=== PATIENT | female | born 2000 | race Caucasian/White ===

== ENCOUNTER 2023-06-15 14:08 | Emergency (ER) | payer OTHER, SELFPAY ==
[2023-06-15 14:10] VITALS: BP 136/96; PULSE 107; RESP 16; TEMP 36.3; O2SAT 99; BMI 35.2
--- NOTE | 2023-06-15 14:34 | EX.ED.DYSGE1 ---
HPI History of Present Illness Chief Complaint: Nausea/Vomiting Informant: patient Onset/Context/Timing Onset: Days (6 days) Context: Gradual Onset Timing: Waxes and wanes Narrative Narrative: Patient presents secondary to nausea and vomiting with concerns for dehydration. She is G1, P0, Ab0 currently 13 weeks . She reports nausea and vomiting over the past 6 days. No diarrhea. She called her OB today who recommended she come in for hydration. She has not noted fever. She has had no bleeding or spotting. PFSH PFSH Medical History no medical history no medical history Home Medications NK 06/15/23 [History Last Taken Unknown] ondansetron 4 mg disintegrating tablet 4 mg PO Q8H PRN PRN Nausea #10 tabs 06/15/23 [Rx Last Taken Unknown] Allergy/AdvReac Type Severity Reaction Status Date / Time No Known Allergies Allergy Verified 06/15/23 14:09 Social History Smoking Status: Never smoker ROS ROS ED Constitutional Constitutional ED: Denies chills or fever(s) Eyes Eyes: Denies change in vision or discharge from eye(s) ENT ENT ED: Denies discharge from eye(s), rhinorrhea or sore throat Cardiovascular Cardiovascular: Denies chest pain or palpitations Respiratory/Chest Respiratory/Chest: Denies cough or dyspnea Gastrointestinal Gastrointestinal: Reports nausea and vomiting; Denies abdominal pain or diarrhea Genitourinary Genitourinary ED: Reports other Details: Decreased urination ; Denies dysuria Musculoskeletal Musculoskeletal: Denies back pain or extremity pain Integumentary Denies Abrasions or rash Neurologic Neurologic: Denies headache(s) or weakness Psychiatric Psychiatric: Denies anxiety or depression Allergic/Immunologic Allergic/Immunologic ED: Denies lip swelling or urticaria EXAM Physical Exam Const Vital Signs: 06/15/23 14:10 Temperature 97.3 F L Temperature Source Temporal Pulse Rate 107 H Respiratory Rate 16 Blood Pressure 136/96 H Blood Pressure Mean 109 Pulse Ox 99 Oxygen Delivery Method Room Air Positive well nourished and well developed General Appearance ED: well developed HEENT Reports dry mucous membranes Mouth ED: Yes dry mucous membranes Mouth: dry mucous membranes Eyes EOMs intact bilaterally Chest Wall inspection of chest normal and palpation of chest normal Resp normal respiratory effort and clear to auscultation bilaterally Cardio regular rhythm Rate: tachycardic GI GI Narrative: Abdomen soft with mild epigastric tenderness. No guarding or rebound. Extremity normal to inspection Neuro oriented x3 and no sensory deficits noted Motor Exam: strength 5/5 throughout Psych mental status grossly normal Skin no rashes or lesions noted MDM MDM MDM Narrative Medical decision making narrative: IV line initiated. Patient given IV fluids and Zofran. Labwork obtained to evaluate for leukocytosis, anemia, and electrolyte derangement. Urinalysis obtained to evaluate for infection/hematuria. History & Record Review Discussion w/independent historian: Patient Lab Data Attestation: I reviewed the patient's lab results. Labs: Laboratory Results - last 24 hr 06/15/23 14:50 WBC 9.6 RBC 4.53 Hgb 14.3 Hct 41.6 MCV 91.8 MCH 31.6 MCHC 34.4 RDW Std Deviation 39.7 RDW Coeff of Alejandro 11.8 Plt Count 290 MPV 9.7 Immature Gran % (Auto) 0.400 Neut % (Auto) 74.9 H Lymph % (Auto) 18.1 L Amelia % (Auto) 6.2 Eos % (Auto) 0.2 Baso % (Auto) 0.2 Absolute Neuts (auto) 7.2 Absolute Lymphs (auto) 1.73 Nucleated RBC % 0 Sodium 137 Potassium 3.4 L Chloride 105 Carbon Dioxide 22.0 Anion Gap 10 BUN 10 Creatinine 0.74 Estim Creat Clear Calc 133.20 Est GFR (MDRD) Af Amer 122 Est GFR (MDRD) Non-Af 101 BUN/Creatinine Ratio 13.4 Glucose 98 Calcium 10.0 Urine Color Yellow Urine Clarity Sl. Cloudy Urine pH 6.0 Ur Specific Aurora 1.025 Urine Protein 30 H Urine Glucose (UA) Normal Urine Ketones 150 A* Urine Occult Blood Negative Urine Nitrite Negative Urine Bilirubin 1 H Urine Urobilinogen 4 H Ur Leukocyte Esterase 25 H Urine RBC 0 SEEN Urine WBC 0-5 SEEN Ur Squamous Epith Cells 0-5 SEEN Urine Bacteria 1+ Urine Mucus 1+ Treatment and Re-Evaluation :: CBC was normal white count 9.6 with a hemoglobin of 14.3. 74% neutrophils noted. Chemistry studies reveal slightly low potassium at 3.4. Renal function is normal. Urinalysis reveals 150 ketones. 1+ bacteria is noted with 0-5 epithelial cells and 0-5 white cells. On repeat evaluation she does feel somewhat improved. She is tolerating ice chips without difficulty. She has had a liter of IV fluid and I will write her prescription for Zofran for home. Return instructions given. Discharge Plan Triage Chief Complaint: Nausea/Vomiting ED Provider: Taty Miramontes Dx/Rx/DC Orders Clinical Impression: Vomiting, Dehydration Instructions: ED Dehydration (Adult), ED Vomiting (Adult) Prescriptions: New ondansetron 4 mg tablet,disintegrating 4 mg PO Q8H PRN PRN (Reason: Nausea) Qty: 10 0RF No Action NK Primary Care Provider: Care Physician,No Primary Referrals: Hortensia Souza MD [Med Staff - Active Staff] - 3-5 Days if not improving Care Physician,No Primary [Primary Care Provider] - Disposition Disposition: Home, Self Care
[2023-06-15 14:55] LABS: Red Blood Cells-Urine 0 SEEN /hpf (0-5)
[2023-06-15] MEDS: Ondansetron 4 MG/2 ML Vial IV (14:57)
[2023-06-15] MEDS: 0.9% Normal Saline (1000mL) 1,000 ML 1000 ML IV (14:57)
[2023-06-15 15:00] LABS: Absolute Lymphocyte Count 1.73 X10^3/uL (0.83-4.51); Absolute Neutrophil Count 7.2 X10^3/uL (2.0-7.7); Basophil# 0.02 X10^3/uL; Basophil% 0.2 % (0-1); Color, Urine Yellow (Yellow); Eosinophil# 0.02 X10^3/uL; Eosinophils% 0.2 % (0-5); Glucose, Dipstick Normal (Normal); Hematocrit 41.6 % (37-47); Hemoglobin 14.3 g/dL (12.0-15.0); Leukocyte Esterase-Dipstick 25 /ul (Negative); Lymphocyte # 1.73 X10^3/ul (0.83-4.51); Lymphocyte % 18.1 % (19-41); Mean Corp Hgb Conc 34.4 g/dL (32-36); Mean Corpuscular Hgb 31.6 pg (27.0-32.0); Mean Corpuscular Volume 91.8 fL (81-99); Mean Platelet Vol. 9.7 fl (6.2-12.0); Monocyte# 0.59 X10^3/uL; Monocyte% 6.2 % (0-10); NRBC Flagged by Analyzer 0 % (0-5); Neutrophil # 7.16 X10^3/uL (2.7-7.7); Neutrophil % 74.9 % (47-70); Nitrite-Dipstick Negative (Negative); Occult Blood-Urine Negative /ul (Negative); Platelet Count 290 K/mm3 (150-450); Protein-Dipstick 30 mg/dl (Negative); RBC Distribution Width CV 11.8 % (11.6-14.6); RBC Distribution Width SD 39.7 fl (35.1-43.9); Red Blood Count 4.53 M/mm3 (4.2-5.4); Specific Gravity, Urine 1.025 (1.002-1.030); Urine Clarity Sl. Cloudy (Clear); Urine Urobilinogen 4 mg/dl (Normal); White Blood Count 9.6 K/mm3 (4.4-11.0)
[2023-06-15 15:02] LABS: Urine Bilirubin Dipstick 1 mg/dL (Negative)
[2023-06-15 15:03] LABS: Ketone-Dipstick 150 mg/dl (Negative)
[2023-06-15 15:07] LABS: Bacteria 1+ /hpf (None Seen); Mucous, Urine 1+ /hpf (<or=2+); Squamous Epithelial Cells - UA 0-5 SEEN /hpf (5-10); White Blood Cells 0-5 SEEN /hpf (0-5)
[2023-06-15 15:09] LABS: Anion Gap 10 (5-15); BUN 10 mg/dL (7-18); BUN/Creat Ratio 13.4 RATIO (10-20); Chloride 105 mmol/L (98-107); Creatinine, Serum 0.74 mg/dL (0.55-1.02); EST Glomerular Filtration Rate 101 mL/min (>60); Est Glom Filt Rate - Afr Amer 122 mL/min (>60); Glucose 98 mg/dL (74-106); Potassium 3.4 mmol/L (3.5-5.1); Sodium Level 137 mmol/L (136-145)
[2023-06-15 16:28] VITALS: PULSE 88; RESP 16; O2SAT 98
== END 2023-06-15 16:30 | disposition home or self-care (01) ==
PROVIDERS: Emergency Provider Emergency Medicine; Visit Provider Emergency Medicine
DX: O99.281 Endocrine, nutritional and metabolic diseases complicating pregnancy, first trimester (principal); O21.9 Vomiting of pregnancy, unspecified; E86.0 Dehydration; Z3A.13 13 weeks gestation of pregnancy
CPT/HCPCS: 80048; 81001; 85025; 96361; 96374; 99283; J7030; A4216; J2405

== ENCOUNTER 2023-06-28 12:38 | Emergency (ER) | payer SELFPAY ==
[2023-06-28 12:39] VITALS: BP 120/89; PULSE 99; RESP 16; TEMP 36.4; O2SAT 97; BMI 35.7
[2023-06-28] MEDS: Ondansetron 4 MG/2 ML Vial IV (14:03)
[2023-06-28] MEDS: 0.9% Normal Saline (1000mL) 1,000 ML 1000 ML IV (14:03)
[2023-06-28 15:00] VITALS: BP 127/67; PULSE 83; RESP 14; O2SAT 99
--- NOTE | 2023-06-28 15:10 | EDS_ITS ---
HPI History of Present Illness Chief Complaint: Nausea/Vomiting Informant: patient Narrative Narrative: 23-year-old female presenting to the emergency room with vomiting. Patient states that she does not believe that this is any morning sickness but other she believes that this is a viral stomach flu. States it is about the second time in a month this is happened to her. She denies any diarrhea. She states that she has a young child and her family that has also been ill and believes she caught this illness from her. She denies any vaginal bleeding or leakage of fluid. Currently sees [facility] obstetrics. No fevers. PFSH PFSH Home Medications ondansetron 4 mg disintegrating tablet 4 mg PO Q8H PRN PRN Nausea #10 tabs 06/15/23 [Rx Last Taken Unknown] ondansetron 4 mg disintegrating tablet 4 mg PO Q6H PRN PRN Nausea #20 tabs 06/28/23 [Rx Last Taken Unknown] Allergy/AdvReac Type Severity Reaction Status Date / Time No Known Allergies Allergy Verified 06/28/23 12:42 Social History Smoking Status: Never smoker ROS ROS ED Constitutional Constitutional ED: Denies chills, fever(s) or weight loss Eyes Eyes: Denies change in vision or diplopia ENT ENT ED: Denies ear pain, rhinorrhea or sore throat Cardiovascular Cardiovascular: Denies chest pain, orthopnea, palpitations or racing heartbeat Respiratory/Chest Respiratory/Chest: Denies cough, dyspnea or orthopnea Gastrointestinal Gastrointestinal: Reports nausea and vomiting; Denies abdominal pain, diarrhea or melena Genitourinary Genitourinary ED: Denies dysuria, hematuria or urinary frequency Musculoskeletal Musculoskeletal: Denies arthralgias or myalgias Integumentary Denies abscess or rash Neurologic Neurologic: Denies headache(s) or weakness Psychiatric Psychiatric: Denies anxiety, depression, suicidal ideation or suicidal thoughts Endocrine Endocrinology: Denies polydipsia, polyphagia or polyuria Allergic/Immunologic Allergic/Immunologic ED: Denies mouth swelling, tongue swelling or urticaria EXAM Physical Exam Const Vital Signs: 06/28/23 12:39 Temperature 97.5 F L Temperature Source Temporal Pulse Rate 99 Respiratory Rate 16 Blood Pressure 120/89 H Blood Pressure Mean 99 Pulse Ox 97 Oxygen Delivery Method Room Air Positive well nourished and well developed General Appearance ED: well developed HEENT Reports normocephalic, head/scalp atraumatic and moist mucous membranes Eyes PERRL and EOMs intact bilaterally Neck no lymphadenopathy, supple and no JVD Resp normal respiratory effort and clear to auscultation bilaterally Cardio regular rate, regular rhythm and no murmurs GI normal to inspection, nondistended, normoactive bowel sounds and non-tender Palpation: soft Back/Spine no CVA tenderness and normal ROM Extremity normal to inspection General Extremety ED: Negative for edema General Extremity: Negative for edema Neuro oriented x3 and CN's II-XII intact bilaterally Sensorium / Orientation: alert Motor Exam: strength 5/5 throughout Psych mental status grossly normal Mood & Affect: Negative for depressed or tearful Skin no rashes or lesions noted and no wounds MDM MDM MDM Narrative Medical decision making narrative: Patient received IV fluids and Zofran. We will check a urine and as well as heart tones. Clinically however I think the patient is doing well. It is probable that she has a viral illness like her family. Would encourage oral hydration if the patient is otherwise doing well we will discharge her home with another prescription for Zofran. Discharge Plan Triage Chief Complaint: Nausea/Vomiting ED Provider: Dale Camara Dx/Rx/DC Orders Clinical Impression: Second trimester , Vomiting Instructions: ED Vomiting (Adult) Prescriptions: New ondansetron [ondansetron] 4 mg tablet,disintegrating 4 mg PO Q6H PRN PRN (Reason: Nausea) Qty: 20 0RF No Action ondansetron 4 mg tablet,disintegrating 4 mg PO Q8H PRN PRN (Reason: Nausea) Qty: 10 0RF Primary Care Provider: Care Physician,No Primary Referrals: Care Physician,No Primary [Primary Care Provider] - Activity Restrictions/Additional Instructions: Please follow-up with your OFFICE SUPPORT as scheduled Disposition Disposition: Home, Self Care
[2023-06-28] MEDS: 0.9% Normal Saline (1000mL) 1,000 ML 999 ML IV (15:31)
[2023-06-28 16:13] LABS: Color, Urine Yellow (Yellow); Glucose, Dipstick Normal (Normal); Leukocyte Esterase-Dipstick 500 /ul (Negative); Nitrite-Dipstick Negative (Negative); Occult Blood-Urine Negative /ul (Negative); Protein-Dipstick 30 mg/dl (Negative); Specific Gravity, Urine 1.025 (1.002-1.030); Urine Clarity Sl. Cloudy (Clear); Urine Urobilinogen 4 mg/dl (Normal)
[2023-06-28 16:14] LABS: Mucous, Urine 0 SEEN /hpf (<or=2+); Red Blood Cells-Urine 0 SEEN /hpf (0-5)
[2023-06-28 16:31] LABS: Urine Bilirubin Dipstick 1 mg/dL (Negative)
[2023-06-28 16:32] LABS: Ketone-Dipstick 150 mg/dl (Negative)
[2023-06-28 16:33] LABS: Squamous Epithelial Cells - UA 10-25 SEEN /hpf (5-10); White Blood Cells 10-25 SEEN /hpf (0-5)
[2023-06-28 16:34] LABS: Bacteria 2+ /hpf (None Seen)
[2023-06-28] MEDS: Cephalexin 250 MG Capsule 500 MG PO (16:56)
[2023-06-28 16:57] VITALS: BP 129/69; PULSE 89; RESP 14; TEMP 36.4; O2SAT 99
[2023-06-28 17:00] VITALS: BP 136/69; PULSE 72; RESP 12; O2SAT 99
== END 2023-06-28 17:41 | disposition home or self-care (01) ==
PROVIDERS: Emergency Medicine; Emergency Provider Emergency Medicine; Visit Provider Emergency Medicine
DX: O21.9 Vomiting of pregnancy, unspecified (principal); R11.2 Nausea with vomiting, unspecified; Z3A.00 Weeks of gestation of pregnancy not specified
CPT/HCPCS: 81001; 96361; 96374; 99282; J7030; A4216; J2405